=== PATIENT | female | born 1950 | race Caucasian/White ===

== ENCOUNTER 2024-02-10 03:38 | Observation (INO) | payer MEDICARE ==
--- NOTE | 2024-02-10 04:11 | ERPHSYRPT ---
- History of Present Illness Time Seen by Provider: 02/10/24 04:08 Physician History: Patient is a 73-year-old female presents to emergency department for evaluation of chest pain that radiates into her back. Patient states this started approximately 8 hours prior to arrival. Pain described as a dull ache. Patient appears very uncomfortable. She is writhing in the bed. Patient unable to focus on in HPI due to discomfort. Patient appears very anxious. Symptoms are constant. Symptoms are moderate in intensity. No specific worsening or improving factors. No associated trauma. No fever. No vomiting. HPI limited due to patient cooperation. Patient voices no other complaints or concerns at this time. Portions of this note were created with voice recognition technology. There may be grammatical, spelling, punctuation or sound alike errors Timing/Duration: today Severity: moderate Modifying Factors: Improves With: nothing Associated Symptoms: denies symptoms Allergies/Adverse Reactions: No Known Drug Allergies Allergy (Verified 02/10/24 04:01) Home Medications: Lisinopril 10 mg [Zestril 10 MG] 10 mg PO DAILY 02/10/24 [History] Mecobalamin [B12 Active] 500 mcg PO DAILY 02/10/24 [History] - Review of Systems Constitutional: No Symptoms Eyes: No Symptoms Ears, Nose, & Throat: No Symptoms Respiratory: No Symptoms Cardiac: No Symptoms Abdominal/Gastrointestinal: No Symptoms Genitourinary Symptoms: No Symptoms Musculoskeletal: No Symptoms Skin: No Symptoms Neurological: No Symptoms Psychological: No Symptoms Endocrine: No Symptoms Hematologic/Lymphatic: No Symptoms Immunological/Allergic: No Symptoms - Past Medical History Neurological History: No Pertinent History Cardiac History: High Cholesterol Respiratory History: No Pertinent History Endocrine Medical History: No Pertinent History Musculoskeletal History: Arthritis, Osteoarthritis - Nursing Vital Signs Nursing Vital Signs: Initial Vital Signs Temperature 98.4 F 02/10/24 04:02 Pulse Rate 67 02/10/24 04:02 Respiratory Rate 18 02/10/24 04:02 Blood Pressure 147/72 02/10/24 04:02 O2 Sat by Pulse Oximetry 99 02/10/24 04:02 Pain Scale Pain Intensity [] 8 Pain Intensity 7 - Physical Exam General Appearance: no apparent distress, alert Eye Exam: PERRL/EOMI, eyes nml inspection Ears, Nose, Throat Exam: normal ENT inspection, TMs normal, pharynx normal, moist mucous membranes Neck Exam: normal inspection, non-tender, supple, full range of motion Respiratory Exam: normal breath sounds, lungs clear, airway intact, No respiratory distress Cardiovascular Exam: regular rate/rhythm, normal heart sounds, normal peripheral pulses Gastrointestinal/Abdomen Exam: soft, normal bowel sounds, No tenderness, No mass Back Exam: normal inspection, normal range of motion, No CVA tenderness, No vertebral tenderness Extremity Exam: normal inspection, normal range of motion, pelvis stable Neurologic Exam: alert, oriented x 3, cooperative, normal mood/affect, nml cerebellar function, nml station & gait, sensation nml, No motor deficits Skin Exam: normal color, warm, dry, No rash Lymphatic Exam: No adenopathy SpO2 Interpretation: normal SpO2: 98 O2 Delivery: Room Air - Course Nursing assessment & vital signs reviewed: Yes EKG Interpreted by Me: RATE (67), Sinus Rhythm, NORMAL AXIS, NORMAL INTERVALS, NORMAL QRS - CT Exams Chest CT Interpretation: Tele-radiologist Report (No acute findings CT chest. No PE observed) Abdomen/Pelvis CT Interpretation: Tele-radiologist Report (CT scan reveals cholelithiasis, multiple renal sinus cysts, pancreatic duct is dilated with a cyst measuring 10 mm. The celiac artery appears compressed possible celiac artery compression syndrome. Right renal artery shows a beaded appearance possible fibromuscular disease. Follow-up ultrasound w) Ordered Tests: Active Orders 24 hr Category Date Time Status [employer] STAT Care 02/10/24 04:03 Active EKG-ER Only STAT Care 02/10/24 04:02 Active IV Insertion STAT Care 02/10/24 04:02 Active Pulse Oximetry (ED) STAT Care 02/10/24 04:02 Active CTA ABD/PEL W AND/OR W/O CONTR [CT] Stat Exams 02/10/24 04:12 Completed CTA CHEST W AND/OR WO [CT] Stat Exams 02/10/24 04:03 Completed CBC W DIFF Stat Lab 02/10/24 05:13 Completed CMP Stat Lab 02/10/24 05:13 Completed LIPASE Stat Lab 02/10/24 07:03 Ordered PROTIME WITH INR Stat Lab 02/10/24 05:13 Completed PTT Stat Lab 02/10/24 05:13 Completed TROPONIN Q4H Lab 02/10/24 05:13 Completed TROPONIN Q4H Lab 02/10/24 08:15 Ordered TROPONIN Q4H Lab 02/10/24 12:15 Ordered UA W/RFX UR CULTURE Stat Lab 02/10/24 04:03 Ordered Medication Summary Discontinued Medications Generic Name Dose Route Start Last Admin Trade Name Diana PRN Reason Stop Dose Admin Morphine Sulfate 4 mg 02/10/24 04:46 02/10/24 04:49 Morphine Sulfate 4 Mg/Ml Injection IV 02/10/24 04:47 4 mg STAT ONE Administration Morphine Sulfate Confirm 02/10/24 04:48 Morphine Sulfate 4 Mg/Ml Injection Administered 02/10/24 04:49 Dose 4 mg .ROUTE .[facility] ONE Lab/Rad Data: Laboratory Result Diagrams 02/10/24 05:13 02/10/24 05:13 Laboratory Results 02/10/24 02/10/24 02/10/24 Range/Units 05:13 05:13 05:13 WBC (4.0-10.5) x10^3/uL RBC (4.1-5.4) x10^6/uL Hgb (12.0-16.0) g/dL Hct (35-47) % MCV (78-100) fL MCH (26-32) pg MCHC (32-36) g/dL RDW (11.5-14.0) % Plt Count (150-450) x10^3/uL MPV (7.5-11.0) fL Gran % (36.0-66.0) % Immature Gran % (Auto) (0.00-0.4) % Nucleat RBC Rel Count (0.00-0.1) % Eos # (Auto) (0-0.5) x10^3/uL Immature Gran # (Auto) (0.00-0.03) x10^3u/L Absolute Lymphs (auto) (1.0-4.6) x10^3/uL Absolute Monos (auto) (0.0-1.3) x10^3/uL Absolute Nucleated RBC (0.00-0.01) x10^3u/L Lymphocytes % (24.0-44.0) % Monocytes % (0.0-12.0) % Eosinophils % (0.00-5.0) % Basophils % (0.0-0.4) % Absolute Granulocytes (1.4-6.9) x10^3/uL Basophils # (0-0.4) x10^3/uL PT 10.1 (9.4-12.5) SECONDS INR 0.92 (0.8-3.0) APTT 24.8 L (25.1-36.5) SECONDS Sodium 139 (135-145) mmol/L Potassium 4.0 (3.5-5.1) mmol/L Chloride 110 H (98-107) mmol/L Carbon Dioxide 18 L (22-30) mmol/L Anion Gap 14.7 (5-15) MEQ/L BUN 19 H (7-17) mg/dL Creatinine 1.12 H (0.52-1.04) mg/dL Estimated GFR 51.3 ML/MIN Glucose 121 H (74-106) mg/dL Calcium 9.5 (8.4-10.2) mg/dL Total Bilirubin 0.70 (0.2-1.3) mg/dL AST 17 (14-36) U/L ALT 12 (0-35) U/L Alkaline Phosphatase 77 (38-126) U/L Troponin I < 0.012 (0.000-0.033) ng/mL Serum Total Protein 7.3 (6.3-8.2) g/dL Albumin 4.1 (3.5-5.0) g/dL 02/10/24 Range/Units 05:13 WBC 8.8 (4.0-10.5) x10^3/uL RBC 4.67 (4.1-5.4) x10^6/uL Hgb 14.6 (12.0-16.0) g/dL Hct 43.2 (35-47) % MCV 92.5 (78-100) fL MCH 31.3 (26-32) pg MCHC 33.8 (32-36) g/dL RDW 11.6 (11.5-14.0) % Plt Count 270 (150-450) x10^3/uL MPV 9.8 (7.5-11.0) fL Gran % 78.2 H (36.0-66.0) % Immature Gran % (Auto) 0.3 (0.00-0.4) % Nucleat RBC Rel Count 0.0 (0.00-0.1) % Eos # (Auto) 0.08 (0-0.5) x10^3/uL Immature Gran # (Auto) 0.03 (0.00-0.03) x10^3u/L Absolute Lymphs (auto) 1.18 (1.0-4.6) x10^3/uL Absolute Monos (auto) 0.59 (0.0-1.3) x10^3/uL Absolute Nucleated RBC 0.00 (0.00-0.01) x10^3u/L Lymphocytes % 13.3 L (24.0-44.0) % Monocytes % 6.7 (0.0-12.0) % Eosinophils % 0.9 (0.00-5.0) % Basophils % 0.6 (0.0-0.4) % Absolute Granulocytes 6.91 H (1.4-6.9) x10^3/uL Basophils # 0.05 (0-0.4) x10^3/uL PT (9.4-12.5) SECONDS INR (0.8-3.0) APTT (25.1-36.5) SECONDS Sodium (135-145) mmol/L Potassium (3.5-5.1) mmol/L Chloride (98-107) mmol/L Carbon Dioxide (22-30) mmol/L Anion Gap (5-15) MEQ/L BUN (7-17) mg/dL Creatinine (0.52-1.04) mg/dL Estimated GFR ML/MIN Glucose (74-106) mg/dL Calcium (8.4-10.2) mg/dL Total Bilirubin (0.2-1.3) mg/dL AST (14-36) U/L ALT (0-35) U/L Alkaline Phosphatase (38-126) U/L Troponin I (0.000-0.033) ng/mL Serum Total Protein (6.3-8.2) g/dL Albumin (3.5-5.0) g/dL - Progress Progress: improved Progress Note: 73-year-old female presents to our ED with chest pain radiating to her back. CT a dissection protocol completed including chest and abdomen pelvis. CT chest negative for dissection. CT abdomen pelvis reveals cholelithiasis and dilated pancreatic duct with possible right renal artery fibromuscular disease. Multiple renal sinus cysts observed. Radiologist advises MRCP. Lipase ordered. If lipase is elevated patient will likely require transfer. If lipase is normal we will discuss with hospitalist the feasibility of admission for cardiac rule out as well as MRCP. If Vicente is agreeable we will admit patient. Otherwise we will transfer patient. Is currently the change of shift. Patient endorsed to Dr. Luna for final disposition. Plan of care discussed with priya ent. She is agreeable to admission and or transfer if necessary. Vital stable. 02/10/24 07:13 Portions of this note were created with voice recognition technology. There may be grammatical, spelling, punctuation or sound alike errors Complex problem addressed is moderate acute complicated. No critical care time. Complex of data reviewed and analyzed is extensive. Test ordered test review ed results analyzed and correlated clinically with history and physical exam. Risk of complication or risk of morbidity/mortality is high. Patient will require hospitalization/transfer to higher level of care. Vital stable. Time spent to admit/transfer patient approximately 20 minutes. Plan of care established for shared decision making. No social determinants of health present impede follow-up. Portions of this note were created with voice recognition technology. There may be grammatical, spelling, punctuation or sound alike errors 02/10/24 07:16 Counseled pt/family regarding: lab results, diagnosis, need for follow-up, rad results - Departure Departure Disposition: Observation Clinical Impression: Chest pain, Cholelithiasis, Renal sinus cysts, Dilated pancreatic duct, Pancreatic duct cyst, Celiac artery compression syndrome, Right renal artery fibromuscular disease Condition: Stable Critical Care Time: No Referrals: SYMONE GALINDO NP [Primary Care Provider] - Follow up/PCP as directed
[2024-02-10] MEDS ORDERED: MORPHINE SULFATE 4 MG INJ ONE ×2 (04:48→07:19)
[2024-02-10] MEDS: MORPHINE SULFATE 4 MG INJ IV ONE ×2 (04:49→07:21)
[2024-02-10 05:16] LABS: Absolute Neutrophil Ct (ANC) 6.91 x10^3/uL (1.4-6.9); BASOPHIL % 0.6 % (0.0-0.4); Basophil (Absolute #) 0.05 x10^3/uL (0-0.4); Eosinophil % 0.9 % (0.00-5.0); Eosinophil (Absolute #) 0.08 x10^3/uL (0-0.5); Hematocrit 43.2 % (35-47); Hemoglobin 14.6 g/dL (12.0-16.0); IMMATURE GRAN # 0.03 x10^3u/L (0.00-0.03); IMMATURE GRAN % 0.3 % (0.00-0.4); Lymphocyte (Absolute #) 1.18 x10^3/uL (1.0-4.6); Lymphocytes % 13.3 % (24.0-44.0); Mean Cell Volume 92.5 fL (78-100); Mean Corpuscular Hemoglobin 31.3 pg (26-32); Mean Corpuscular Hgb Concent. 33.8 g/dL (32-36); Mean Platelet Volume 9.8 fL (7.5-11.0); Monocyte (Absolute #) 0.59 x10^3/uL (0.0-1.3); Monocytes % 6.7 % (0.0-12.0); Neutrophil % 78.2 % (36.0-66.0); Platelet Count 270 x10^3/uL (150-450); Red Blood Count 4.67 x10^6/uL (4.1-5.4); Red Cell Distribution Width 11.6 % (11.5-14.0); White Blood Count 8.8 x10^3/uL (4.0-10.5)
[2024-02-10 05:29] LABS: ALBUMIN 4.1 g/dL (3.5-5.0); ANION GAP 14.7 MEQ/L (5-15); BILIRUBIN,TOTAL 0.7 mg/dL (0.2-1.3); Calcium 9.5 mg/dL (8.4-10.2); Creatinine 1 1.12 mg/dL (0.52-1.04); EST GLOMERULAR FILTRATION RATE 51.3 ML/MIN; Total Protein 7.3 g/dL (6.3-8.2)
[2024-02-10 05:32] LABS: INR 0.92 (0.8-3.0); PROTIME 10.1 SECONDS (9.4-12.5); PTT 24.8 SECONDS (25.1-36.5)
--- NOTE | 2024-02-10 06:39 | XRAY ---
CLINICAL HISTORY: pain COMPARISON: None TECHNIQUE: Contiguous axial images were obtained from the neck base through the upper abdomen following intravenous administration of iodinated contrast material. Angiographic images were processed, 3D MIP images were acquired for interpretation. If IV contrast material had not been administered, the likelihood of detecting abnormalities relevant to the patient's condition would have been substantially decreased. Coronal and sagittal 3-D MIPs were likewise performed and indicated to increase the sensitivity of detectin diffuse clinically relevant pathology. CT scan was performed according to ALARA (as low as reasonable achievable). FINDINGS: Adequate contrast bolus without evidence of pulmonary embolism. The central airways are patent. The lungs are clear. No pleural effusion. The heart, aorta, and pulmonary arteries are of normal size and configuration. Aortic root is normal. Ascending aorta is normal in course, calibre and opacification. Arch of aorta is left sided with normal outline and opacification. Descending thoracic aorta is normal in course, calibre and opacification. Origin of major neck arteries are normal with no hemodynamically significant ostial stenosis seen. There are no appreciable coronary artery and aortic atherosclerotic calcifications. No pericardial effusion is identified. The thyroid is unremarkable. No mediastinal, hilar, or axillary lymphadenopathy is noted. No suspicious lytic or sclerotic osseous lesions are identified. IMPRESSION: 1. No evidence of pulmonary embolism or pulmonary disease. 2. Normal aortic opacification withouta ny evidence of aneurysm or significant stenosis. Electronically Signed by: Bennie Sagastume MD. (02/10/2024 06:35:22 EDT)
--- NOTE | 2024-02-10 07:00 | XRAY ---
CLINICAL HISTORY: pain COMPARISON: None TECHNIQUE: Contrast enhanced thin slice CT angiography scan of the abdominal aorta was performed with intravenous contrast. Angiographic images were processed, 3D MIP images were acquired for interpretation. Contiguous axial images were obtained. Reformatted coronal and sagittal images were also reviewed. If IV contrast material had not been administered, the likelihood of detecting abnormalities relevant to the patients condition would have been substantially decreased. CT scan was performed according to ALARA (as low as reasonable achievable). FINDINGS: Abdominal aorta is normal in course, calibre and opacification. There is focal narrowing of the superior aspect of the proximal coeliac trunk forming a hooked appearance and post-stenotic dilatation. The mid/distal segment of right renal artery shows irregularity of its margins with beaded appearance. The left renal artery is normal without any significant stenosis. Origin of superior mesenteric artery , bilateral main renal and lumbar arteries are normal with no hemodynamically significant ostial stenosis noted. Bilateral common, external and internal iliac arteries are normal in course, caliber and opacification. Multiple hyperdense gall bladder calculi varying in dimension from 3 to 15mm are idnetified. Bilateral kidneys show multiple renal sinus cysts (peripelvic cysts). No hydronephrosis or renal calculi seen. Pancreatic duct is dilated in the body and tail region with a cyst measuring 10mm in proximal body region. Multiple calcified granulomas seen in spleen. Other solid abdominal organs including liver reveal no significant abnormality. Ascending colon is not visualized. Surgical sutures are seen in the hepatic flexure. Bowel loops are grossly unremarkable. An anterior abdominal wall defect measuring 20 x 15mm is seen in right para umbilical region through which omental fat is seen herniating. No evidence of ascites. IMPRESSION: 1. Focal narrowing of superior aspect of proximal coeliac trunk forming a hooked appearance and mild post-stenotic dilatation - suggesting celiac artery compression syndrome. 2. Iregularity of mid/distal segment of right renal artery with beaded appearance - raising the possibility of fibromuscular disease. Advise ultrasound renal doppler correlation. 3. Cholelithiasis. 4. Bilateral kidneys show multiple renal sinus cysts (peripelvic cysts). No hydronephrosis or renal calculi seen. Contrast CT urography is suggested for further evaluation, if clinically indicated. 5. DIlated pancreatic duct with a cyst in proximal body region. Advise serum amylase/lipase correlation and MRCP. Electronically Signed by: Bennie Sagastume MD. (02/10/2024 06:56:06 EDT)
[2024-02-10] MEDS ORDERED: Zofran 4 MG/2 ML VIAL ONE (07:24)
[2024-02-10] MEDS: Zofran 4 MG/2 ML VIAL IV ONE (07:26)
--- NOTE | 2024-02-10 11:24 | PCM.HP ---
History of Present Illness - Chief Complaint Chief Complaint: CP Date: 02/10/24 History of Present Illness: is a 73 year old female with a pmhx of HLD, HTN, colorectal canc, and osteoarthritis who presented to ED 02/10/24 after experiencing chest pain that radiates to her back. Patient reports that she was in her usual state of health until approximately 1 a.m. this morning when she began to have aching chest pain with radiation to her back and dry heaves. She describes the pain as moderate in intensity, substernal chest with radiation to the back, constant, and aching. She denies associated shortness of breath, dizziness, vomiting, diarrhea, or fever. No aggravating factors. Pain has let up some since arrival to the hospital and receiving pain medications. In ED, vitals stable. EKG with no ST elevation/deviations. CTA of the abdomen showing Focal narrowing of superior aspect of proximal coeliac trunk forming a hooked appearance and mild post-stenotic dilatation - suggesting celiac artery compression syndrome. Iregularity of mid/distal segment of right renal artery with beaded appearance - raising the possibility of fibromuscular disease. Cholelithiasis. Bilateral kidneys show multiple renal sinus cysts (peripelvic cysts). DIlated pancreatic duct with a cyst in proximal body region. Advise MRCP. CT chest showing no evidence of pulmonary embolism or pulmonary disease. Normal aortic opacification withouta ny evidence of aneurysm or significant stenosis. Lab finding with mild JAYSON and metabolic acidosis. Troponin x 2 negative. - Review of Systems Constitutional: No Symptoms Eyes: No Symptoms Ears, Nose, & Throat: No Symptoms Respiratory: No Symptoms Cardiac: Chest Pain Abdominal/Gastrointestinal: Nausea Genitourinary Symptoms: No Symptoms Musculoskeletal: Back Pain Skin: No Symptoms Neurological: No Symptoms Psychological: No Symptoms Endocrine: No Symptoms Hematologic/Lymphatic: No Symptoms Immunological/Allergic: No Symptoms Medications & Allergies Home Medications: Home Medication List Lisinopril 10 mg [Zestril 10 MG] 10 mg PO DAILY 02/10/24 [History Confirmed 02/10/24] Mecobalamin [B12 Active] 500 mcg PO DAILY 02/10/24 [History Confirmed 02/10/24] Allergies/Adverse Reactions: Allergies Allergy/AdvReac Type Severity Reaction Status Date / Time No Known Drug Allergies Allergy Verified 02/10/24 04:01 - Past Medical History Past Medical History: Yes Neurological History: No Pertinent History ENT History: No Pertinent History Cardiac History: High Cholesterol, Hypertension Respiratory History: No Pertinent History Endocrine Medical History: No Pertinent History Musculoskelatal History: Arthritis, Osteoarthritis GI Medical History: Colorectal Cancer History: No Pertinent History Pyscho-Social History: No Pertinent History Reproductive Disorders: No Pertinent History - Past Surgical History Past Surgical History: Yes Neuro Surgical History: No Pertinent History Cardiac History: No Pertinent History Respiratory Surgery: No Pertinent History GI Surgical History: Colon Resection Genitourinary Surgical Hx: No Pertinent History Musculskeletal Surgical Hx: Orthopedic Surgery Female Surgical History: No Pertinent History Other Surgical History: Right knee replacement 2017 - Social History Smoking Status: Never smoker Exposure to second hand smoke: No Alcohol: None Drug Use: none - Social Determinants of Health Will the patient participate in the screening: Yes Do you worry about a steady place to live?: No Do you have any problems with any of the following?: No known problems In the past 12 months,have you had to go without utilities?: No Have you or anyone in your house had to go without enough: No Transportation Issues: No Has anyone in your support network made you feel unsafe?: No - Physical Exam Vital Signs: Vital Signs - 24 hr Temp Pulse Resp BP BP Pulse Ox 02/10/24 11:18 91 H 23 93 L 02/10/24 09:31 77 20 134/81 98 02/10/24 09:00 78 19 153/96 98 02/10/24 08:34 82 21 140/72 99 02/10/24 08:00 82 20 154/96 02/10/24 07:30 72 18 141/91 97 02/10/24 07:19 98 02/10/24 07:01 77 17 166/86 96 02/10/24 06:30 72 16 154/93 97 02/10/24 06:01 64 17 156/95 97 02/10/24 04:02 98.4 F 67 18 147/72 98 General Appearance: no apparent distress Neurologic Exam: alert, oriented x 3, cooperative Eye Exam: PERRL/EOMI Ears, Nose, Throat Exam: normal ENT inspection Neck Exam: normal inspection Respiratory Exam: normal breath sounds, lungs clear Cardiovascular Exam: regular rate/rhythm, normal heart sounds Gastrointestinal/Abdomen Exam: soft, normal bowel sounds Pelvic Exam: not done Rectal Exam: deferred Back Exam: normal inspection Extremity Exam: normal inspection Skin Exam: normal color Results - Labs Lab/Micro Results: Lab Results-Last 24 Hours 02/10/24 02/10/24 02/10/24 Range/Units 05:13 05:13 05:13 WBC 8.8 (4.0-10.5) x10^3/uL RBC 4.67 (4.1-5.4) x10^6/uL Hgb 14.6 (12.0-16.0) g/dL Hct 43.2 (35-47) % MCV 92.5 (78-100) fL MCH 31.3 (26-32) pg MCHC 33.8 (32-36) g/dL RDW 11.6 (11.5-14.0) % Plt Count 270 (150-450) x10^3/uL MPV 9.8 (7.5-11.0) fL Gran % 78.2 H (36.0-66.0) % Immature Gran % (Auto) 0.3 (0.00-0.4) % Nucleat RBC Rel Count 0.0 (0.00-0.1) % Eos # (Auto) 0.08 (0-0.5) x10^3/uL Immature Gran # (Auto) 0.03 (0.00-0.03) x10^3u/L Absolute Lymphs (auto) 1.18 (1.0-4.6) x10^3/uL Absolute Monos (auto) 0.59 (0.0-1.3) x10^3/uL Absolute Nucleated RBC 0.00 (0.00-0.01) x10^3u/L Lymphocytes % 13.3 L (24.0-44.0) % Monocytes % 6.7 (0.0-12.0) % Eosinophils % 0.9 (0.00-5.0) % Basophils % 0.6 (0.0-0.4) % Absolute Granulocytes 6.91 H (1.4-6.9) x10^3/uL Basophils # 0.05 (0-0.4) x10^3/uL PT 10.1 (9.4-12.5) SECONDS INR 0.92 (0.8-3.0) APTT 24.8 L (25.1-36.5) SECONDS Sodium 139 (135-145) mmol/L Potassium 4.0 (3.5-5.1) mmol/L Chloride 110 H (98-107) mmol/L Carbon Dioxide 18 L (22-30) mmol/L Anion Gap 14.7 (5-15) MEQ/L BUN 19 H (7-17) mg/dL Creatinine 1.12 H (0.52-1.04) mg/dL Estimated GFR 51.3 ML/MIN Glucose 121 H (74-106) mg/dL Calcium 9.5 (8.4-10.2) mg/dL Total Bilirubin 0.70 (0.2-1.3) mg/dL AST 17 (14-36) U/L ALT 12 (0-35) U/L Alkaline Phosphatase 77 (38-126) U/L Troponin I (0.000-0.033) ng/mL Serum Total Protein 7.3 (6.3-8.2) g/dL Albumin 4.1 (3.5-5.0) g/dL Lipase (23-300) U/L 02/10/24 02/10/24 02/10/24 Range/Units 05:13 07:20 08:38 WBC (4.0-10.5) x10^3/uL RBC (4.1-5.4) x10^6/uL Hgb (12.0-16.0) g/dL Hct (35-47) % MCV (78-100) fL MCH (26-32) pg MCHC (32-36) g/dL RDW (11.5-14.0) % Plt Count (150-450) x10^3/uL MPV (7.5-11.0) fL Gran % (36.0-66.0) % Immature Gran % (Auto) (0.00-0.4) % Nucleat RBC Rel Count (0.00-0.1) % Eos # (Auto) (0-0.5) x10^3/uL Immature Gran # (Auto) (0.00-0.03) x10^3u/L Absolute Lymphs (auto) (1.0-4.6) x10^3/uL Absolute Monos (auto) (0.0-1.3) x10^3/uL Absolute Nucleated RBC (0.00-0.01) x10^3u/L Lymphocytes % (24.0-44.0) % Monocytes % (0.0-12.0) % Eosinophils % (0.00-5.0) % Basophils % (0.0-0.4) % Absolute Granulocytes (1.4-6.9) x10^3/uL Basophils # (0-0.4) x10^3/uL PT (9.4-12.5) SECONDS INR (0.8-3.0) APTT (25.1-36.5) SECONDS Sodium (135-145) mmol/L Potassium (3.5-5.1) mmol/L Chloride (98-107) mmol/L Carbon Dioxide (22-30) mmol/L Anion Gap (5-15) MEQ/L BUN (7-17) mg/dL Creatinine (0.52-1.04) mg/dL Estimated GFR ML/MIN Glucose (74-106) mg/dL Calcium (8.4-10.2) mg/dL Total Bilirubin (0.2-1.3) mg/dL AST (14-36) U/L ALT (0-35) U/L Alkaline Phosphatase (38-126) U/L Troponin I < 0.012 < 0.012 (0.000-0.033) ng/mL Serum Total Protein (6.3-8.2) g/dL Albumin (3.5-5.0) g/dL Lipase 161 (23-300) U/L - Radiology Impressions Radiology Exams & Impressions: Radiology Procedures Category Date Time Status CTA ABD/PEL W AND/OR W/O CONTR [CT] Stat Exams 02/10/24 04:12 Completed CTA CHEST W AND/OR WO [CT] Stat Exams 02/10/24 04:03 Completed Assessment/Plan (1) Chest pain Current Visit: Yes Status: Acute Assessment & Plan: -EKG NS with no ST elevation/deviation -BNP pending -Trops neg x 2 -Echo -repeak EKG in a.m. -cardiology consult 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 Status: Acute Assessment & Plan: -Noted on CT, no recent weight loss Code(s): I77.4 - CELIAC ARTERY COMPRESSION SYNDROME (6) Cholelithiasis Current Visit: Yes Status: Acute Assessment & Plan: - HIDA -NPO -sx consult pending results (7) Dilated pancreatic duct Current Visit: Yes Status: Acute Assessment & Plan: -As noted on CT, MRCP scheduled for tomorrow Code(s): K86.89 - OTHER SPECIFIED DISEASES OF PANCREAS (8) JAYSON (acute kidney injury) Current Visit: Yes Status: Acute Assessment & Plan: -Gentle hydration -avoid anup/arb/diuretics/NSAIDs -monitor renal/lytes VTE: bilateral SCD PPI: protonix Dispo: 1-2 days Code Status: Full Code(s): N17.9 - ACUTE KIDNEY FAILURE, UNSPECIFIED
[2024-02-10] MEDS ORDERED: Zofran 4 MG/2 ML VIAL IV PRN (12:40)
[2024-02-10 13:38] LABS: MAGNESIUM 1.8 mg/dL (1.6-2.3); TSH, 3RD Generation 0.612 mIU/L (0.470-4.680)
[2024-02-10] MEDS: Protonix 40MG Tablet PO SCH (14:06)
[2024-02-10] MEDS: Sodium Chloride 0.9% 1000 ML 1,000 ML IV SCH (14:06)
[2024-02-10 16:06] LABS: Appearance Clear (Clear); Bacteria None Seen /HPF (None Seen); Bilirubin Negative (Negative); Blood Small (Negative); Epithelial Cells None Seen /HPF (None Seen); Glucose, Urine Negative (Negative); Hyaline Casts NONE SEEN /LPF (0-2); Ketones Negative (Negative); Leukocyte Esterase Negative (Negative); Nitrite Negative (Negative); Protein,Urine Dip Negative (Negative); RBC 0-2 /HPF (0-5); Specific Gravity >=1.030 (1.005-1.030); Urobilinogen 0.2 mg/dL (0.2); WBC 0-2 /HPF (0-5)
[2024-02-10 16:08] LABS: ADD URINE CULTURE? NO (NO)
[2024-02-10] MEDS: Zestril 10 MG PO SCH (22:04)
[2024-02-10] MEDS: TYLENOL 325 MG PO PRN (23:05)
[2024-02-11 08:44] LABS: Absolute Neutrophil Ct (ANC) 4.97 x10^3/uL (1.4-6.9); BASOPHIL % 0.6 % (0.0-0.4); Basophil (Absolute #) 0.04 x10^3/uL (0-0.4); Eosinophil % 2.1 % (0.00-5.0); Eosinophil (Absolute #) 0.14 x10^3/uL (0-0.5); IMMATURE GRAN # 0.01 x10^3u/L (0.00-0.03); IMMATURE GRAN % 0.1 % (0.00-0.4); Lymphocyte (Absolute #) 0.87 x10^3/uL (1.0-4.6); Mean Corpuscular Hemoglobin 31.3 pg (26-32); Mean Corpuscular Hgb Concent. 32.6 g/dL (32-36); Mean Platelet Volume 9.7 fL (7.5-11.0); Monocyte (Absolute #) 0.65 x10^3/uL (0.0-1.3); Monocytes % 9.7 % (0.0-12.0); Neutrophil % 74.5 % (36.0-66.0); Platelet Count 205 x10^3/uL (150-450); Red Blood Count 4.48 x10^6/uL (4.1-5.4); Red Cell Distribution Width 11.8 % (11.5-14.0); White Blood Count 6.7 x10^3/uL (4.0-10.5)
[2024-02-11 08:56] LABS: ALBUMIN 3.5 g/dL (3.5-5.0); ANION GAP 6.5 MEQ/L (5-15); BILIRUBIN,TOTAL 1.3 mg/dL (0.2-1.3); Calcium 8.4 mg/dL (8.4-10.2); Creatinine 1 1.12 mg/dL (0.52-1.04); EST GLOMERULAR FILTRATION RATE 51.3 ML/MIN; MAGNESIUM 1.9 mg/dL (1.6-2.3); Potassium 3.9 mmol/L (3.5-5.1); Total Protein 6.7 g/dL (6.3-8.2)
--- NOTE | 2024-02-11 10:11 | XRAY ---
Indication: Abnormal CTA abdomen/pelvis one day earlier. Distended gallbladder with cholelithiasis. Conventional MRCP performed. Comparison: None Biliary tree is normal in course and caliber. Common bile duct is 6 mm in diameter without choledochal stone or filling defect. Body and tail of pancreas demonstrates pancreatic duct up to 3 mm in diameter without filling defect. Body of pancreas demonstrates 2.3 x 1.3 cm micro-lobular cyst communicating with pancreatic duct, probably sequela chronic pancreatitis. Abnormally distended gallbladder with multiple gallstones, largest 1.7 cm. Gallbladder wall thickening up to 4 mm with tiny pericholecystic fluid concerning for acute cholecystitis. Peripheral right lateral liver demonstrates 1.1 cm cyst. Both kidneys demonstrate peripelvic cysts. Remaining visualized spleen, adrenal glands, aorta, and IVC are unremarkable. No abnormal bone marrow signal. Impression: 1. Abnormal distended gallbladder with gallstones, wall thickening, and pericholecystic fluid. Rule out acute cholecystitis. 2. Remaining MRCP demonstrates pancreatic ductal dilatation with communicating micro-lobular cyst as detailed presumed sequela chronic pancreatitis. 3. Incidental bilateral renal peripelvic cysts and tiny right renal cyst.
[2024-02-11] MEDS: ECOTRIN 81 MG PO SCH (11:02)
[2024-02-11] MEDS: Zetia 10 MG PO SCH (11:02)
[2024-02-11] MEDS: MORPHINE SULFATE 4 MG INJ IV PRN (13:41)
--- NOTE | 2024-02-11 14:40 | XRAY ---
Indication: Cholelithiasis. Comparison: None Patient received 5.4 mCi technetium 99 Choletec. Immediate anterior planar imaging was performed for 70 minutes. Normal hepatic activity on first image. Normal biliary and biliary to bowel activity within 20 minutes. No gallbladder activity within 70 minutes. Patient then received 3.6 mg of IV morphine sulfate. Gallbladder activity demonstrated within 14 minutes. Impression: Negative HIDA scan after morphine sulfate intervention.
--- NOTE | 2024-02-11 15:48 | PCM.DS ---
Discharge Summary Date of Admission: 02/10/24 10:24 Date of Discharge: 02/11/24 Admitting Physician: GENEVIEVE LU MD Consults: Consults on Case 02/10/24 12:39 Consult Cardiology ROUTINE 02/11/24 13:14 Consult Surgery ROUTINE Primary Care Provider: SYMONE GALINDO Allergies Allergies No Known Drug Allergies Allergy (Verified 02/10/24 04:01) Hospital Summary - Hospital Course Hospital Course: is a 73 year old female with a pmhx of HLD, HTN, colorectal canc, and osteoarthritis who presented to ED 02/10/24 after experiencing chest pain that radiates to her back. Patient reports that she was in her usual state of health until approximately 1 a.m. this morning when she began to have aching chest pain with radiation to her back and dry heaves. She describes the pain as moderate in intensity, substernal chest with radiation to the back, constant, and aching. She denies associated shortness of breath, dizziness, vomiting, diarrhea, or fever. No aggravating factors. Pain has let up some since arrival to the hospital and receiving pain medications. In ED, vitals stable. EKG with no ST elevation/deviations. CTA of the abdomen showing Focal narrowing of superior aspect of proximal coeliac trunk forming a hooked appearance and mild post- stenotic dilatation - suggesting celiac artery compression syndrome. Iregularity of mid/distal segment of right renal artery with beaded appearance - raising the possibility of fibromuscular disease. Cholelithiasis. Bilateral kidneys show multiple renal sinus cysts (peripelvic cysts). DIlated pancreatic duct with a cyst in proximal body region. Advise MRCP. CT chest showing no evidence of pulmonary embolism or pulmonary disease. Normal aortic opacification withouta ny evidence of aneurysm or significant stenosis. Lab finding with mild JAYSON and metabolic acidosis. Troponin x 2 negative. Cardiology consulted on patient with recs to change lisinopril to 10mg bid, add zetia, ASA. She will follow up OP for stress test. HIDA and MRCP performed. MRCP showing abnormal distended gallbladder with gallstones, wall thickening, and pericholecystic fluid. Rule out acute cholecystitis.Remaining MRCP demonstrates pancreatic ductal dilatation with communicating micro-lobular cyst as detailed presumed sequela chronic pancreatitis. Incidental bilateral renal peripelvic cysts and tiny right renal cyst. HIDA scan negative. Surgery consulted with recs to follow up as OP. CP has resolved, no other complaints voiced. Advised patient to follow up with PCP, cardiology, and surgery as scheduled. Patient agreeable to plan and stable for discharge. Discharge Note New Diagnosis: CP/cholelithiasis New Medications: as stated above Follow Up: PCP/cards/surg Latest Assessment & Plan (1) Chest pain Current Visit: Yes Status: Acute Assessment & Plan: -EKG NS with no ST elevation/deviation -BNP pending -Trops neg x 2 -Echo -repeak EKG in a.m. -cardiology consult 02/10: -cardiology consulted with recs to change lisinopril to 10mg bid, add zetia, ASA. She will follow up OP for stress test. 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 Status: Acute Assessment & Plan: -Noted on CT, no recent weight loss Code(s): I77.4 - CELIAC ARTERY COMPRESSION SYNDROME (6) Cholelithiasis Current Visit: Yes Status: Acute Assessment & Plan: - HIDA -NPO -sx consult pending results 02/10: -HIDA negative -No n/v abdominal pain - MRCP showing abnormal distended gallbladder with gallstones, wall thickening, and pericholecystic fluid -surgery consulted, can follow up as OP (7) Dilated pancreatic duct Current Visit: Yes Status: Acute Assessment & Plan: -As noted on CT, MRCP scheduled for tomorrow 02/10: -MRCP demonstrates pancreatic ductal dilatation with communicating micro-lobular cyst as detailed presumed sequela chronic pancreatitis. Code(s): K86.89 - OTHER SPECIFIED DISEASES OF PANCREAS (8) JAYSON (acute kidney injury) Current Visit: Yes Status: Acute Assessment & Plan: -Gentle hydration -avoid anup/arb/diuretics/NSAIDs -monitor renal/lytes I spent 35 minutes [id number] with the patient on the day of discharge performing discharge exam, discussing hospital stay and discharge instructions w ith patient and caregivers, preparation of discharge records, prescriptions & referral forms and addressing any questions/concerns the patient had as documented above. - Vitals & Intake/Output Vital Signs: Vital Signs Temperature 97.8 F 02/11/24 11:16 Pulse Rate 79 02/11/24 11:16 Respiratory Rate 20 02/11/24 11:16 Blood Pressure 120/77 02/11/24 11:16 O2 Sat by Pulse Oximetry 95 02/11/24 11:16 Intake & Output: Intake & Output 02/09/24 02/10/24 02/11/24 02/12/24 11:59 11:59 11:59 11:59 Intake Total 1569 0 Output Total 900 Balance 669 0 Weight 99.3 kg 99.3 kg - Lab Result Diagrams: 02/11/24 08:37 02/11/24 08:37 Lab Results-Last 24 Hrs: Lab Results-Last 24 Hours 02/10/24 02/11/24 02/11/24 Range/Units 15:29 08:37 08:37 WBC 6.7 (4.0-10.5) x10^3/uL RBC 4.48 (4.1-5.4) x10^6/uL Hgb 14.0 (12.0-16.0) g/dL Hct 43.0 (35-47) % MCV 96.0 (78-100) fL MCH 31.3 (26-32) pg MCHC 32.6 (32-36) g/dL RDW 11.8 (11.5-14.0) % Plt Count 205 (150-450) x10^3/uL MPV 9.7 (7.5-11.0) fL Gran % 74.5 H (36.0-66.0) % Immature Gran % (Auto) 0.1 (0.00-0.4) % Nucleat RBC Rel Count 0.0 (0.00-0.1) % Eos # (Auto) 0.14 (0-0.5) x10^3/uL Immature Gran # (Auto) 0.01 (0.00-0.03) x10^3u/L Absolute Lymphs (auto) 0.87 L (1.0-4.6) x10^3/uL Absolute Monos (auto) 0.65 (0.0-1.3) x10^3/uL Absolute Nucleated RBC 0.00 (0.00-0.01) x10^3u/L Lymphocytes % 13.0 L (24.0-44.0) % Monocytes % 9.7 (0.0-12.0) % Eosinophils % 2.1 (0.00-5.0) % Basophils % 0.6 (0.0-0.4) % Absolute Granulocytes 4.97 (1.4-6.9) x10^3/uL Basophils # 0.04 (0-0.4) x10^3/uL Sodium 138 (135-145) mmol/L Potassium 3.9 (3.5-5.1) mmol/L Chloride 109 H (98-107) mmol/L Carbon Dioxide 26 (22-30) mmol/L Anion Gap 6.5 (5-15) MEQ/L BUN 12 (7-17) mg/dL Creatinine 1.12 H (0.52-1.04) mg/dL Estimated GFR 51.3 ML/MIN Glucose 103 (74-106) mg/dL Calcium 8.4 (8.4-10.2) mg/dL Magnesium 1.9 (1.6-2.3) mg/dL Total Bilirubin 1.30 (0.2-1.3) mg/dL AST 17 (14-36) U/L ALT 10 (0-35) U/L Alkaline Phosphatase 65 (38-126) U/L Troponin I (0.000-0.033) ng/mL Serum Total Protein 6.7 (6.3-8.2) g/dL Albumin 3.5 (3.5-5.0) g/dL Urine Color Yellow (Yellow) Urine Appearance Clear (Clear) Urine pH 5.0 (4.6-8.0) Ur Specific Candia >=1.030 A (1.005-1.030) Urine Protein Negative (Negative) Urine Glucose (UA) Negative (Negative) mg/dL Urine Ketones Negative (Negative) Urine Blood Small A (Negative) Urine Nitrite Negative (Negative) Urine Bilirubin Negative (Negative) Urine Urobilinogen 0.2 (0.2) mg/dL Ur Leukocyte Esterase Negative (Negative) U Hyaline Cast (Auto) NONE SEEN (0-2) /LPF Urine Microscopic RBC 0-2 (0-5) /HPF Urine Microscopic WBC 0-2 (0-5) /HPF Ur Epithelial Cells None Seen (None Seen) /HPF Urine Bacteria None Seen (None Seen) /HPF Urine Culture Reflexed NO (NO) 02/11/24 Range/Units 08:37 WBC (4.0-10.5) x10^3/uL RBC (4.1-5.4) x10^6/uL Hgb (12.0-16.0) g/dL Hct (35-47) % MCV (78-100) fL MCH (26-32) pg MCHC (32-36) g/dL RDW (11.5-14.0) % Plt Count (150-450) x10^3/uL MPV (7.5-11.0) fL Gran % (36.0-66.0) % Immature Gran % (Auto) (0.00-0.4) % Nucleat RBC Rel Count (0.00-0.1) % Eos # (Auto) (0-0.5) x10^3/uL Immature Gran # (Auto) (0.00-0.03) x10^3u/L Absolute Lymphs (auto) (1.0-4.6) x10^3/uL Absolute Monos (auto) (0.0-1.3) x10^3/uL Absolute Nucleated RBC (0.00-0.01) x10^3u/L Lymphocytes % (24.0-44.0) % Monocytes % (0.0-12.0) % Eosinophils % (0.00-5.0) % Basophils % (0.0-0.4) % Absolute Granulocytes (1.4-6.9) x10^3/uL Basophils # (0-0.4) x10^3/uL Sodium (135-145) mmol/L Potassium (3.5-5.1) mmol/L Chloride (98-107) mmol/L Carbon Dioxide (22-30) mmol/L Anion Gap (5-15) MEQ/L BUN (7-17) mg/dL Creatinine (0.52-1.04) mg/dL Estimated GFR ML/MIN Glucose (74-106) mg/dL Calcium (8.4-10.2) mg/dL Magnesium (1.6-2.3) mg/dL Total Bilirubin (0.2-1.3) mg/dL AST (14-36) U/L ALT (0-35) U/L Alkaline Phosphatase (38-126) U/L Troponin I < 0.012 (0.000-0.033) ng/mL Serum Total Protein (6.3-8.2) g/dL Albumin (3.5-5.0) g/dL Urine Color (Yellow) Urine Appearance (Clear) Urine pH (4.6-8.0) Ur Specific Candia (1.005-1.030) Urine Protein (Negative) Urine Glucose (UA) (Negative) mg/dL Urine Ketones (Negative) Urine Blood (Negative) Urine Nitrite (Negative) Urine Bilirubin (Negative) Urine Urobilinogen (0.2) mg/dL Ur Leukocyte Esterase (Negative) U Hyaline Cast (Auto) (0-2) /LPF Urine Microscopic RBC (0-5) /HPF Urine Microscopic WBC (0-5) /HPF Ur Epithelial Cells (None Seen) /HPF Urine Bacteria (None Seen) /HPF Urine Culture Reflexed (NO) - Radiology Exams Ordered Rad Exams-Entire Visit: Radiology Procedures Category Date Time Status CTA ABD/PEL W AND/OR W/O CONTR [CT] Stat Exams 02/10/24 04:12 Completed CTA CHEST W AND/OR WO [CT] Stat Exams 02/10/24 04:03 Completed ECHO W/2D AND DOPPLER [US] Routine Exams 02/10/24 12:41 Taken HEPATOBILIARY W/CCK [NUCMED] Urgent Exams 02/11/24 12:00 Completed MRI ABD W/O CONTRAST [MRI] Routine Exams 02/11/24 13:00 Completed - Procedures and Test Procedures and Tests throughout Hospitalization: Therapy Orders & Screens 02/10/24 10:36 Respiratory Therapy Consult ONCE Comment: Reason For Exam: 02/10/24 12:40 EKG REPEAT IN AM Comment: Diagnosis: CP Discharge Exam General Appearance: no apparent distress Neurologic Exam: alert, oriented x 3, cooperative Eye Exam: PERRL Ears, Nose, Throat Exam: normal ENT inspection Neck Exam: normal inspection Respiratory Exam: normal breath sounds, lungs clear Cardiovascular Exam: regular rate/rhythm, normal heart sounds Gastrointestinal/Abdomen Exam: soft, normal bowel sounds Pelvic Exam: deferred Rectal Exam: deferred Back Exam: normal inspection Extremity Exam: normal inspection Skin Exam: normal color Final Diagnosis/Problem List - Final Discharge Diagnosis/Problem (1) Chest pain Current Visit: Yes Status: Resolved Code(s): R07.9 - CHEST PAIN, UNSPECIFIED (2) Hypertension Current Visit: Yes Status: Chronic Code(s): I10 - ESSENTIAL (PRIMARY) HYPERTENSION (3) History of colon cancer Current Visit: Yes Status: Chronic Code(s): Z85.038 - PERSONAL HISTORY OF MALIGNANT NEOPLASM OF LARGE INTESTINE (4) HLD (hyperlipidemia) Current Visit: Yes Status: Chronic Code(s): E78.5 - HYPERLIPIDEMIA, UNSPECIFIED (5) Celiac artery compression syndrome Current Visit: Yes Status: Acute Code(s): I77.4 - CELIAC ARTERY COMPRESSION SYNDROME (6) Cholelithiasis Current Visit: Yes Status: Chronic (7) Dilated pancreatic duct Current Visit: Yes Status: Acute Code(s): K86.89 - OTHER SPECIFIED DISEASES OF PANCREAS (8) JAYSON (acute kidney injury) Current Visit: Yes Status: Acute Code(s): N17.9 - ACUTE KIDNEY FAILURE, UNSPECIFIED - Discharge Disposition: Home, Self-Care Condition: Stable Prescriptions: New Aspirin EC 81 mg [Ecotrin 81 mg] 81 mg PO DAILY 30 Days #30 tablet Lisinopril 10 mg [Zestril 10 MG] 10 mg PO BID 30 Days #60 tablet Ezetimibe 10 mg [Zetia 10 MG] 10 mg PO QAM 30 Days #30 tablet Continue Mecobalamin [B12 Active] 500 mcg PO DAILY Discontinued Lisinopril 10 mg [Zestril 10 MG] 10 mg PO DAILY Additional Instructions: MONITOR B/P AT HOME INSTRUCTED-LOG RESULTS AND TAKE TO YOUR FOLLOW UP WITH BOTH PRIMARY CARE DOCTOR AND CARDIOLOGY Follow up with: SYMONE GALINDO NP [Primary Care Provider] - MCKAYLA TUCKER MD [ACTIVE STAFF] - EDNA KAUFMAN MD [CONSULTING PHYSICIAN] -
[2024-02-11 16:19] VITALS: BP 122/76; PULSE 106; RESP 21; TEMP 97.2; O2SAT 98
== END 2024-02-11 17:35 | disposition home or self-care (01) ==
LOC: ED 03:38 → MED SURG 10:24
PROVIDERS: ADMIT Internal Medicine; ATTEND Internal Medicine
DX: R07.9 Chest pain, unspecified (principal); E78.5 Hyperlipidemia, unspecified; I10 Essential (primary) hypertension; Z85.038 Personal history of other malignant neoplasm of large intestine; I77.4 Celiac artery compression syndrome; K80.20 Calculus of gallbladder without cholecystitis without obstruction; K86.89 Other specified diseases of pancreas; N17.9 Acute kidney failure, unspecified; Z79.899 Other long term (current) drug therapy
CPT/HCPCS: 36000; 36415; 71275; 74174; 74181; 78227; 80053; 81001; 83690; 83735; 83880; 84443; 84484; 85025; 85610; 85730; 93005; 93041; 93306; 94760; 94762; 96374; 96375; 96376; 99284; A9537; Q3014; 93268; J2270; J2405; A9270-GY; G0378